=== PATIENT | female | born 2000 | race Caucasian/White ===

== ENCOUNTER 2022-11-25 16:08 | Outpatient (CLI) | payer MEDICAID, SELFPAY ==
[2022-11-25 13:38] LABS: Chloride* 105 mmol/L (96-114); Potassium* 4.4 mmol/L (3.6-5.1); Sodium* 141 mmol/L (135-149)
[2022-11-25 13:41] LABS: Blood Urea Nitrogen* 12 mg/dL (5-24); Carbon Dioxide* 28 mmol/L (20-32); Creatinine* 0.6 mg/dL (0.5-1.5); Estimated Glomerular Filt Rate 132 ml/min
[2022-11-25 13:42] LABS: Calcium* 9.5 mg/dL (8.4-10.6); Glucose* 94 mg/dL (60-115)
[2022-11-25 14:12] LABS: TSH With Reflex to FT4* 0.671 uIU/mL (0.270-4.200)
== END 2022-11-25 16:09 | disposition home or self-care (01) ==
PROVIDERS: PCP Emergency Medicine; Visit Provider Emergency Medicine
DX: R53.83 Other fatigue (principal)
CPT/HCPCS: 80048; 84443

== ENCOUNTER 2025-07-13 17:13 | Outpatient (CLI) | payer MEDICAID, SELFPAY | END 2025-07-13 17:14 | disposition home or self-care (01) | PROVIDERS: PCP Family Medicine; Visit Provider Family Medicine | DX: R53.83 Other fatigue (principal) | CPT/HCPCS: 80053; 82306; 84443 ==

== ENCOUNTER 2025-09-16 20:52 | Outpatient (CLI) | payer MEDICAID, SELFPAY ==
--- NOTE | 2025-09-22 14:49 | W.PM.SLEEP ---
Sleep Study Details Details Interpreting Provider: Zoila Date of Sleep Study: 09/16/25 Sleep Study Details: STUDY TYPE:? Home unattended ? BMI:? 24.3 ORDERING PROVIDER:Mandy Mahmood INDICATION:? Concern for sleep apnea ? SLEEP SUMMARY:? 307 minutes total sleep time RESPIRATORY SUMMARY:? AHI 3.1 per rule 1 8, 0.2 per CMS guideline, REM AHI 0 in all positions PERIODIC LIMB MOVEMENTS OF SLEEP:? Index 11.3, index with arousal 0.4 CARDIAC:? Awake 92 asleep 80 variable heart rate noted at times IMPRESSION:? Variable heart rate, no significant evidence of obstructive sleep apnea. RECOMMENDATION: Further cardiac evaluation may be indicated If sleep disorder strongly suspected recommend repeat study with [facility] to follow.
== END 2025-09-16 20:53 | disposition home or self-care (01) ==
LOC: SLEEP 20:53
PROVIDERS: PCP Family Medicine; Visit Provider Family Medicine
DX: G47.19 Other hypersomnia (principal); R06.83 Snoring
CPT/HCPCS: 95810